=== PATIENT | male | born 1965 | race Caucasian/White ===

== ENCOUNTER 2018-06-12 10:23 | Emergency (ER) | payer OTHER ==
[~2018-06-12] VITALS: Ht 170.2 cm; Wt 85.3 kg
[~2018-06-12 10:23] MED LIST: BENADRYL25 MG PO; CEPH500 PO; CLIN300 PO; DIPH50 PO; HYDACE5 PO; OXYACE5T PO; PRED20 PO; Prednisone20 MG PO; RANI150 PO; SULTRIDS PO
[2018-06-12 11:11] LABS: Source, Urine Clean Catch
[2018-06-12 11:15] LABS: BASOPHILS ABSOLUTE AUTO 0.05 K/mm3 (0.00-0.23); BASOPHILS PERCENT AUTO 1 % (0-2); EOSINOPHILS ABSOLUTE AUTO 0.17 K/mm3 (0.00-0.68); EOSINOPHILS PERCENT AUTO 2 % (0-6); Hematocrit 49.7 % (37.0-53.0); Hemoglobin 16.2 g/dL (13.5-17.5); IMMATURE GRAN ABSOLUTE AUTO 0.03 K/mm3 (0.00-0.10); IMMATURE GRAN PERCENT AUTO 0 % (0-1); LYMPHOCYTES ABSOLUTE AUTO 2.51 K/mm3 (0.84-5.20); LYMPHOCYTES PERCENT AUTO 34 % (21-46); MONOCYTES PERCENT AUTO 10 % (4-13); Mean Corpuscular HGB Conc 32.6 g/dL (31.5-36.5); Mean Corpuscular Volume 89 fL (80-100); Mean Platelet Volume 9.7 fL (9.1-12.4); NEUTROPHILS ABSOLUTE AUTO 3.86 K/mm3 (1.96-9.15); NEUTROPHILS PERCENT AUTO 53 % (41-73); Platelet Count 215 K/mm3 (150-400); RDW Coefficient Variation 12.2 % (11.7-14.2); Red Blood Cell Count 5.58 M/mm3 (4.30-5.90); White Blood Cell Count 7.32 K/mm3 (4.00-11.30)
[2018-06-12 11:37] LABS: Alanine Aminotransfer (ALT/SGP 31 U/L (12-78); Albumin, Blood 3.8 g/dL (3.4-5.0); Alk Phos 104 U/L (50-136); Anion Gap 7 mmol/L (6-16); Aspartate Aminotrans (AST/SGOT 24 U/L (12-37); Bilirubin, Total 0.2 mg/dL (0.1-1.0); Blood Urea Nitrogen 16 mg/dL (8-24); Bun/Creatinine Ratio 19.6 (12.0-20.0); CO2, Blood 28 mmol/L (21-32); Calcium, Blood 8.8 mg/dL (8.5-10.1); Chloride, Blood 106 mmol/L (98-108); Creatinine, Blood 0.82 mg/dL (0.60-1.20); Glomerular Filtration Rate >60 (60-); Glucose, Blood 101 mg/dL (70-99); Potassium, Blood 3.9 mmol/L (3.5-5.5); Sodium, Blood 141 mmol/L (136-145); Total Protein, Blood 7.8 g/dL (6.4-8.2)
[2018-06-12 11:45] LABS: Bilirubin, Urine Neg (Neg); Blood, Urine Neg (Neg); Glucose Qualitative, Urine Neg (Neg); Ketones, Urine Neg (Neg); Leukocyte Esterase, Urine Neg (Neg); Nitrite, Urine Neg (Neg); Protein, Urine Neg (Neg); Urobilinogen, Urine NORM (Normal)
[2018-06-12 11:48] LABS: Appearance, Urine Clear (Clear); Color, Urine Yellow (P-Yellow)
[2018-06-12] MEDS ORDERED: METPRE4DP PO (14:17)
[2018-06-12] MEDS ORDERED: ALBU90OI INH (14:17)
== END 2018-06-12 14:32 | disposition home or self-care (01) ==
LOC: ER 10:23
PROVIDERS: Physician Assistant
DX: J40 Bronchitis, not specified as acute or chronic (principal); F17.210 Nicotine dependence, cigarettes, uncomplicated
CPT/HCPCS: 36415; 71046; 80053; 81003; 83690; 85025; 99283-25

== ENCOUNTER 2021-05-19 05:06 | Emergency (ER) | payer OTHER ==
[~2021-05-19] VITALS: Ht 170.2 cm; Wt 81.7 kg
[~2021-05-19 05:06] MED LIST changes: +ALBU90OI INH; +METPRE4DP PO
== END 2021-05-19 06:35 | disposition home or self-care (01) ==
LOC: ER 05:06
DX: L02.415 Cutaneous abscess of right lower limb (principal); L03.115 Cellulitis of right lower limb; F17.210 Nicotine dependence, cigarettes, uncomplicated
CPT/HCPCS: 99283; A9270